=== PATIENT | male | born 1960 | race Caucasian/White ===

== ENCOUNTER 2020-06-30 18:08 | Inpatient (IN) | payer BC ==
[~2020-06-30] VITALS: Ht 165.1 cm; Wt 88.5 kg
[2020-06-30] MEDS ORDERED: VISCOUS LIDOCAINE 2% 15 ML UDC PO STA (18:28)
[2020-06-30] MEDS ORDERED: MAGNESIUM/ALUMINUM HYDROXIDE/SIMETHICONE 30ML UDC PO STA (18:28)
[2020-06-30] MEDS ORDERED: DICYCLOMINE 10 MG/5 ML ORAL SYR PO STA (18:28)
[2020-06-30 18:47] LABS: BASOPHILS % 0.4 % (0.0-2.0); EOSINOPHILS % 0.5 % (0.0-5.0); HEMATOCRIT. 43.8 % (42.0-52.0); HEMOGLOBIN. 14.5 g/dL (14.0-18.0); LYMPHOCYTES % 14.2 % (20.0-50.0); MEAN CORPUSCULAR HEMOGLOBIN 30.8 pg (28.0-32.0); MEAN PLATELET VOLUME 7.1 fl (7.4-10.4); MONOCYTES % 6.5 % (2.0-8.0); NEUTROPHILS % 78.4 % (40.0-76.0); PLATELET 281 x1000/uL (130-400); RED BLOOD CELL COUNT 4.71 mill/uL (4.7-6.1); RED CELL DISTRIBUTION WIDTH 12.9 % (11.6-14.6)
[2020-06-30 18:54] LABS: CHLORIDE 106 mEq/L (98-107)
[2020-06-30 20:48] LABS: CLARITY URINE CLEAR (CLEAR); COLOR URINE YELLOW (YELLOW); KETONES URINE TRACE (NEGATIVE); LEUKOCYTE ESTERASE URINE NEGATIVE (NEGATIVE); NITRITE URINE NEGATIVE (NEGATIVE); OCCULT BLOOD URINE NEGATIVE (NEGATIVE); PH URINE 5.5 (4.5-8.0); PROTEIN URINE 2+ (NEGATIVE); SPECIFIC GRAVITY URINE 1.029 (1.005-1.030)
[2020-06-30] MEDS ORDERED: ONDANSETRON HCL 4MG/2ML INJ IV STA ×2 (20:51→22:51)
[2020-06-30] MEDS ORDERED: MORPHINE SULFATE 4 MG/ML CPJ (NOT FOR IM USE) IV STA ×2 (20:51→22:51)
[2020-06-30] MEDS ORDERED: VANCOMYCIN 1 G PREMIX 200 ML IV ONE (23:00)
[2020-06-30] MEDS ORDERED: PIPERACILLIN/TAZ 3.375G PREMIX 50 ML IV ONE (23:00)
[2020-06-30 23:13] LABS: PROTHROMBIN TIME 10.8 sec (9.6-11.0)
[2020-07-01] VITALS (10 sets, daily range): BP systolic 100–118; BP diastolic 32–80
[2020-07-01] MEDS ORDERED: MORPHINE SULFATE 4 MG/ML CPJ (NOT FOR IM USE) IV PRN (01:15)
[2020-07-01] MEDS ORDERED: MORPHINE SULFATE 2 MG/ML CPJ (NOT FOR IM USE) IV PRN (01:15)
[2020-07-01] MEDS ORDERED: TRAZODONE HCL 50MG TABLET PO PRN (01:15)
[2020-07-01] MEDS ORDERED: ONDANSETRON HCL 4MG/2ML INJ IV PRN ×3 (01:15→05:00)
[2020-07-01] MEDS ORDERED: SODIUM CHLORIDE 0.9% 500 ML IV ONE (01:45)
[2020-07-01] MEDS ORDERED: DEXT 5%/0.45% NACL 1000ML 1,000 ML IV SCH (02:00)
[2020-07-01] MEDS ORDERED: PHENYLEPHRINE HCL 10 MG/ML 1ML (IV VIAL) IV ONE (02:51)
[2020-07-01] MEDS ORDERED: NEOSTIGMINE METHYLSULFATE 1MG/ML 10 ML VIAL ONE (02:51)
[2020-07-01] MEDS ORDERED: GLYCOPYRROLATE 0.2 MG/ML 2ML VIAL ONE (02:51)
[2020-07-01] MEDS ORDERED: PROPOFOL 200MG/20ML VIAL IV ONE (02:51)
[2020-07-01] MEDS ORDERED: SODIUM CHLORIDE 0.9% 10ML VIAL ONE (02:51)
[2020-07-01] MEDS ORDERED: CEFAZOLIN SODIUM 1000MG/VIAL ONE (02:51)
[2020-07-01] MEDS ORDERED: ROCURONIUM BROMIDE 10MG/ML VIAL 5ML IV ONE (02:51)
[2020-07-01] MEDS ORDERED: ONDANSETRON HCL 4MG/2ML INJ ONE (02:51)
[2020-07-01] MEDS ORDERED: SUCCINYLCHOLINE CHLORIDE 200MG/10ML IV ONE (02:51)
[2020-07-01] MEDS ORDERED: EPHEDRINE SULFATE 50MG/ML VIAL ONE (02:51)
[2020-07-01] MEDS ORDERED: METOCLOPRAMIDE HCL 10MG/2ML VIAL ONE (02:51)
[2020-07-01] MEDS ORDERED: MIDAZOLAM HCL 2 MG/2 ML VIAL ONE (02:51)
[2020-07-01] MEDS ORDERED: FENTANYL CITRATE/PF 50MCG/ML 2ML VIAL ONE ×3 (02:51→04:15)
[2020-07-01] MEDS ORDERED: BUPIVACAINE HCL 0.5% (5MG/ML) 50ML ONE (02:59)
[2020-07-01] MEDS ORDERED: HYDROMORPHONE HCL/PF 2MG/ML CPJ IV PRN (05:00)
[2020-07-01] MEDS ORDERED: MEPERIDINE HCL/PF 25MG/ML CPJ IV PRN ×2 (05:00)
[2020-07-01] MEDS: MORPHINE SULFATE 2 MG/ML CPJ (NOT FOR IM USE) IV PRN ×4 (05:38→19:38)
[2020-07-01] MEDS ORDERED: PIPERACILLIN/TAZOBACTAM 3.375 G/VIAL IV SCH (06:00)
[2020-07-01] MEDS: SODIUM CHLORIDE 0.9% 1,000 ML IV NR (07:32)
[2020-07-01] MEDS: PIPERACILLIN/TAZOBACTAM 3.375 G in DEXTROSE 5% WATER 50 ML IV SCH ×2 (07:32→12:43)
[2020-07-01] MEDS: FAMOTIDINE 20MG/2ML VIAL IV SCH ×2 (10:31→20:30)
[2020-07-01] MEDS ORDERED: DEXT 5%/0.45% NACL KCL 20MEQ/L 1,000 ML IV SCH (12:00)
[2020-07-01] MEDS: MORPHINE SULFATE 4 MG/ML CPJ (NOT FOR IM USE) IV PRN ×2 (16:19→23:13)
[2020-07-01] MEDS: PIPERACILLIN/TAZOBACTAM 3.375 G in DEXT 5% WATER 100 ML IV SCH (18:04)
[2020-07-02] VITALS (12 sets, daily range): BP systolic 96–116; BP diastolic 56–80
[2020-07-02] MEDS: PIPERACILLIN/TAZOBACTAM 3.375 G in DEXT 5% WATER 100 ML IV SCH ×4 (00:07→17:25)
[2020-07-02] MEDS: SODIUM CHLORIDE 0.9% 1,000 ML IV NR (00:07)
[2020-07-02] MEDS: MORPHINE SULFATE 2 MG/ML CPJ (NOT FOR IM USE) IV PRN ×3 (01:28→23:00)
[2020-07-02] MEDS: MORPHINE SULFATE 4 MG/ML CPJ (NOT FOR IM USE) IV PRN ×3 (04:41→19:30)
[2020-07-02 06:40] LABS: BASOPHILS % 0.2 % (0.0-2.0); EOSINOPHILS % 0.3 % (0.0-5.0); HEMOGLOBIN. 12.1 g/dL (14.0-18.0); LYMPHOCYTES % 8.7 % (20.0-50.0); MEAN CORPUSCULAR HEMOGLOBIN 31.7 pg (28.0-32.0); MEAN CORPUSCULAR VOLUME 94.2 fL (80.0-94.0); MEAN PLATELET VOLUME 7.2 fl (7.4-10.4); MONOCYTES % 7.2 % (2.0-8.0); NEUTROPHILS % 83.6 % (40.0-76.0); PLATELET 219 x1000/uL (130-400); RED BLOOD CELL COUNT 3.82 mill/uL (4.7-6.1); RED CELL DISTRIBUTION WIDTH 12.9 % (11.6-14.6)
[2020-07-02 08:05] LABS: CHLORIDE 107 mEq/L (98-107)
[2020-07-02] MEDS: FAMOTIDINE 20MG/2ML VIAL IV SCH ×2 (08:38→20:07)
[2020-07-02] MEDS: DEXT 5%/0.45% NACL 1000ML 1,000 ML IV SCH (11:41)
[2020-07-03] VITALS (13 sets, daily range): BP systolic 96–121; BP diastolic 42–73
[2020-07-03] MEDS: ACETAMINOPHEN 325MG TABLET PO PRN (00:01)
[2020-07-03] MEDS: PIPERACILLIN/TAZOBACTAM 3.375 G in DEXT 5% WATER 100 ML IV SCH ×5 (00:18→23:38)
[2020-07-03] MEDS: MORPHINE SULFATE 2 MG/ML CPJ (NOT FOR IM USE) IV PRN ×4 (03:31→22:09)
[2020-07-03] MEDS: DEXT 5%/0.45% NACL 1000ML 1,000 ML IV SCH (04:44)
[2020-07-03 06:33] LABS: BASOPHILS % 0.1 % (0.0-2.0); EOSINOPHILS % 1.5 % (0.0-5.0); HEMATOCRIT. 34.2 % (42.0-52.0); HEMOGLOBIN. 11.5 g/dL (14.0-18.0); LYMPHOCYTES % 8.3 % (20.0-50.0); MEAN CORPUSCULAR HEMOGLOBIN 31.3 pg (28.0-32.0); MEAN CORPUSCULAR VOLUME 93.2 fL (80.0-94.0); MEAN PLATELET VOLUME 7.2 fl (7.4-10.4); MONOCYTES % 6.8 % (2.0-8.0); NEUTROPHILS % 83.3 % (40.0-76.0); PLATELET 206 x1000/uL (130-400); RED BLOOD CELL COUNT 3.67 mill/uL (4.7-6.1)
[2020-07-03 06:43] LABS: CHLORIDE 106 mEq/L (98-107)
[2020-07-03] MEDS: FAMOTIDINE 20MG/2ML VIAL IV SCH ×2 (08:32→20:33)
[2020-07-03] MEDS: DEXT 5%/0.9% NACL 1,000 ML IV SCH (19:37)
[2020-07-04] VITALS (11 sets, daily range): BP systolic 107–129; BP diastolic 23–76
[2020-07-04] MEDS: MORPHINE SULFATE 2 MG/ML CPJ (NOT FOR IM USE) IV PRN ×6 (01:41→22:57)
[2020-07-04] MEDS: DEXT 5%/0.9% NACL 1,000 ML IV SCH ×2 (01:42→13:01)
[2020-07-04] MEDS: PIPERACILLIN/TAZOBACTAM 3.375 G in DEXT 5% WATER 100 ML IV SCH ×4 (05:26→23:08)
[2020-07-04 06:43] LABS: BASOPHILS % 0.3 % (0.0-2.0); EOSINOPHILS % 2.3 % (0.0-5.0); LYMPHOCYTES % 7.7 % (20.0-50.0); MEAN CORPUSCULAR VOLUME 93.3 fL (80.0-94.0); MEAN PLATELET VOLUME 7.1 fl (7.4-10.4); MONOCYTES % 9.5 % (2.0-8.0); NEUTROPHILS % 80.2 % (40.0-76.0); PLATELET 256 x1000/uL (130-400); RED BLOOD CELL COUNT 3.76 mill/uL (4.7-6.1); RED CELL DISTRIBUTION WIDTH 12.9 % (11.6-14.6)
[2020-07-04 06:48] LABS: CHLORIDE 103 mEq/L (98-107)
[2020-07-04] MEDS: FAMOTIDINE 20MG/2ML VIAL IV SCH ×2 (09:08→21:18)
[2020-07-04] MEDS ORDERED: ACETAMINOPHEN 325MG SUPP PR PRN (09:15)
[2020-07-05] VITALS (12 sets, daily range): BP systolic 94–129; BP diastolic 50–83
[2020-07-05] MEDS: DEXT 5%/0.9% NACL 1,000 ML IV SCH ×2 (04:29→17:23)
[2020-07-05] MEDS: MORPHINE SULFATE 2 MG/ML CPJ (NOT FOR IM USE) IV PRN ×3 (04:29→23:27)
[2020-07-05] MEDS: PIPERACILLIN/TAZOBACTAM 3.375 G in DEXT 5% WATER 100 ML IV SCH ×4 (05:19→23:28)
[2020-07-05 07:24] LABS: CHLORIDE 105 mEq/L (98-107)
[2020-07-05 07:48] LABS: BASOPHILS % 0.3 % (0.0-2.0); HEMATOCRIT. 35.8 % (42.0-52.0); HEMOGLOBIN. 12.1 g/dL (14.0-18.0); LYMPHOCYTES % 10.2 % (20.0-50.0); MEAN CORPUSCULAR HEMOGLOBIN 31.4 pg (28.0-32.0); MEAN CORPUSCULAR VOLUME 92.9 fL (80.0-94.0); MEAN PLATELET VOLUME 7.1 fl (7.4-10.4); MONOCYTES % 14.7 % (2.0-8.0); NEUTROPHILS % 71.8 % (40.0-76.0); PLATELET 278 x1000/uL (130-400); RED BLOOD CELL COUNT 3.85 mill/uL (4.7-6.1); RED CELL DISTRIBUTION WIDTH 13.2 % (11.6-14.6)
[2020-07-05] MEDS: FAMOTIDINE 20MG/2ML VIAL IV SCH ×2 (08:24→20:49)
[2020-07-05] MEDS ORDERED: KCL 20MEQ/100ML PREMIX 100 ML IV NR (09:30)
[2020-07-05] MEDS: MORPHINE SULFATE 4 MG/ML CPJ (NOT FOR IM USE) IV PRN ×2 (09:31→18:16)
[2020-07-06] VITALS (11 sets, daily range): BP systolic 98–135; BP diastolic 56–85
[2020-07-06] MEDS: PIPERACILLIN/TAZOBACTAM 3.375 G in DEXT 5% WATER 100 ML IV SCH ×3 (05:56→19:04)
[2020-07-06] MEDS: DEXT 5%/0.9% NACL 1,000 ML IV SCH ×2 (06:11→20:47)
[2020-07-06 07:02] LABS: BASOPHILS % 0.4 % (0.0-2.0); EOSINOPHILS % 3.9 % (0.0-5.0); HEMATOCRIT. 37.1 % (42.0-52.0); HEMOGLOBIN. 12.5 g/dL (14.0-18.0); LYMPHOCYTES % 15.3 % (20.0-50.0); MEAN CORPUSCULAR HEMOGLOBIN 31.1 pg (28.0-32.0); MEAN CORPUSCULAR VOLUME 92.3 fL (80.0-94.0); MEAN PLATELET VOLUME 7.2 fl (7.4-10.4); MONOCYTES % 14.7 % (2.0-8.0); NEUTROPHILS % 65.7 % (40.0-76.0); PLATELET 330 x1000/uL (130-400); RED BLOOD CELL COUNT 4.02 mill/uL (4.7-6.1); RED CELL DISTRIBUTION WIDTH 13.3 % (11.6-14.6)
[2020-07-06 07:12] LABS: CHLORIDE 106 mEq/L (98-107)
[2020-07-06] MEDS: ACETAMINOPHEN 325MG TABLET PO PRN (08:09)
[2020-07-06] MEDS: FAMOTIDINE 20MG/2ML VIAL IV SCH ×2 (08:09→21:10)
[2020-07-06] MEDS: MORPHINE SULFATE 2 MG/ML CPJ (NOT FOR IM USE) IV PRN ×3 (11:02→22:17)
[2020-07-06] MEDS ORDERED: INFLUENZA VACCINE 05/PF 0.5 ML VIAL IM ONE (12:15)
[2020-07-07] VITALS (7 sets, daily range): BP systolic 115–121; BP diastolic 71–86
[2020-07-07] MEDS: MORPHINE SULFATE 2 MG/ML CPJ (NOT FOR IM USE) IV PRN ×4 (02:49→22:15)
[2020-07-07] MEDS: DEXT 5%/0.9% NACL 1,000 ML IV SCH ×2 (08:41→22:17)
[2020-07-07] MEDS: FAMOTIDINE 20MG/2ML VIAL IV SCH ×2 (08:41→21:55)
[2020-07-07] MEDS ORDERED: MORPHINE SULFATE 2 MG/ML CPJ (NOT FOR IM USE) IV PRN (10:15)
[2020-07-07] MEDS ORDERED: POLYETHYLENE GLYCOL 3350 (17GM) 1 DOSE PACK PO PRN (10:45)
[2020-07-07 13:11] LABS: BASOPHILS % 0.6 % (0.0-2.0); EOSINOPHILS % 4.1 % (0.0-5.0); HEMATOCRIT. 37.1 % (42.0-52.0); HEMOGLOBIN. 12.3 g/dL (14.0-18.0); LYMPHOCYTES % 19.5 % (20.0-50.0); MEAN CORPUSCULAR VOLUME 93.6 fL (80.0-94.0); MEAN PLATELET VOLUME 7.1 fl (7.4-10.4); MONOCYTES % 14.7 % (2.0-8.0); NEUTROPHILS % 61.1 % (40.0-76.0); PLATELET 364 x1000/uL (130-400); RED BLOOD CELL COUNT 3.97 mill/uL (4.7-6.1); RED CELL DISTRIBUTION WIDTH 13.8 % (11.6-14.6)
[2020-07-07 13:20] LABS: CHLORIDE 110 mEq/L (98-107)
[2020-07-07] MEDS: DOCUSATE SODIUM 100MG CAPSULE PO SCH (17:15)
[2020-07-08] VITALS (7 sets, daily range): BP systolic 98–112; BP diastolic 67–73
[2020-07-08 07:20] LABS: BASOPHILS % 0.5 % (0.0-2.0); EOSINOPHILS % 4.4 % (0.0-5.0); HEMATOCRIT. 34.8 % (42.0-52.0); HEMOGLOBIN. 11.6 g/dL (14.0-18.0); MEAN CORPUSCULAR VOLUME 93.1 fL (80.0-94.0); MEAN PLATELET VOLUME 6.9 fl (7.4-10.4); MONOCYTES % 10.2 % (2.0-8.0); NEUTROPHILS % 64.9 % (40.0-76.0); PLATELET 402 x1000/uL (130-400); RED BLOOD CELL COUNT 3.74 mill/uL (4.7-6.1); RED CELL DISTRIBUTION WIDTH 13.3 % (11.6-14.6)
[2020-07-08 07:39] LABS: CHLORIDE 107 mEq/L (98-107)
[2020-07-08] MEDS: FAMOTIDINE 20MG/2ML VIAL IV SCH ×2 (09:00→20:51)
[2020-07-08] MEDS: DOCUSATE SODIUM 100MG CAPSULE PO SCH ×2 (09:00→17:21)
[2020-07-08] MEDS: DEXT 5%/0.9% NACL 1,000 ML IV SCH (10:07)
[2020-07-08] MEDS: ACETAMINOPHEN 325MG TABLET PO PRN ×2 (14:12→19:29)
[2020-07-09] VITALS: BP 99/62
[2020-07-09] MEDS: DEXT 5%/0.9% NACL 1,000 ML IV SCH ×2 (01:50→15:10)
[2020-07-09 04:00] VITALS: BP 110/75
[2020-07-09 07:18] LABS: BASOPHILS % 0.6 % (0.0-2.0); EOSINOPHILS % 2.9 % (0.0-5.0); HEMATOCRIT. 35.7 % (42.0-52.0); HEMOGLOBIN. 11.9 g/dL (14.0-18.0); LYMPHOCYTES % 15.3 % (20.0-50.0); MEAN CORPUSCULAR HEMOGLOBIN 30.7 pg (28.0-32.0); MEAN CORPUSCULAR VOLUME 92.5 fL (80.0-94.0); MEAN PLATELET VOLUME 6.9 fl (7.4-10.4); MONOCYTES % 6.9 % (2.0-8.0); NEUTROPHILS % 74.3 % (40.0-76.0); PLATELET 458 x1000/uL (130-400); RED BLOOD CELL COUNT 3.87 mill/uL (4.7-6.1); RED CELL DISTRIBUTION WIDTH 13.5 % (11.6-14.6)
[2020-07-09 07:29] LABS: CHLORIDE 106 mEq/L (98-107)
[2020-07-09 08:00] VITALS: BP 97/53
[2020-07-09] MEDS: FAMOTIDINE 20MG/2ML VIAL IV SCH ×2 (10:15→20:06)
[2020-07-09] MEDS: DOCUSATE SODIUM 100MG CAPSULE PO SCH ×2 (10:15→17:00)
[2020-07-09 12:00] VITALS: BP 100/59
[2020-07-09] MEDS: ACETAMINOPHEN 325MG TABLET PO PRN (12:20)
[2020-07-09 16:00] VITALS: BP 110/72
[2020-07-09 20:00] VITALS: BP 99/63
[2020-07-10] VITALS (8 sets, daily range): BP systolic 100–108; BP diastolic 64–76
[2020-07-10] MEDS: DEXT 5%/0.9% NACL 1,000 ML IV SCH (05:18)
[2020-07-10 06:52] LABS: BASOPHILS % 0.8 % (0.0-2.0); EOSINOPHILS % 2.5 % (0.0-5.0); HEMATOCRIT. 34.2 % (42.0-52.0); HEMOGLOBIN. 11.7 g/dL (14.0-18.0); MEAN CORPUSCULAR HEMOGLOBIN 31.6 pg (28.0-32.0); MEAN CORPUSCULAR VOLUME 92.3 fL (80.0-94.0); MEAN PLATELET VOLUME 6.9 fl (7.4-10.4); MONOCYTES % 6.7 % (2.0-8.0); PLATELET 488 x1000/uL (130-400); RED BLOOD CELL COUNT 3.71 mill/uL (4.7-6.1); RED CELL DISTRIBUTION WIDTH 13.6 % (11.6-14.6)
[2020-07-10 08:02] LABS: CHLORIDE 106 mEq/L (98-107)
[2020-07-10] MEDS: FAMOTIDINE 20MG/2ML VIAL IV SCH (11:38)
[2020-07-10] MEDS: DOCUSATE SODIUM 100MG CAPSULE PO SCH ×2 (11:38→16:33)
[2020-07-10] MEDS ORDERED: TOPUD PO (12:36)
[2020-07-10] MEDS: ACETAMINOPHEN 325MG TABLET PO PRN (12:47)
== END 2020-07-10 18:25 | disposition home or self-care (01) | DRG 853 ==
LOC: ER 18:08 → 5EST 22:38 → ENRESERV 23:55
PROVIDERS: ADMIT Internal Medicine; ATTEND Internal Medicine
PROC: 0DU907Z Supplement Duodenum with Autologous Tissue Substitute, Open Approach (ICD-10-PCS; principal; 2020-07-01)
PROC: 0DNU0ZZ Release Omentum, Open Approach (ICD-10-PCS; 2020-07-01)
PROC: 0DNW0ZZ Release Peritoneum, Open Approach (ICD-10-PCS; 2020-07-01)
PROC: 0DNL0ZZ Release Transverse Colon, Open Approach (ICD-10-PCS; 2020-07-01)
DX: A41.51 Sepsis due to Escherichia coli [E. coli] (principal); K26.5 Chronic or unspecified duodenal ulcer with perforation; K65.9 Peritonitis, unspecified; D62 Acute posthemorrhagic anemia; E87.1 Hypo-osmolality and hyponatremia; K56.7 Ileus, unspecified; A41.01 Sepsis due to Methicillin susceptible Staphylococcus aureus; E87.6 Hypokalemia; E80.6 Other disorders of bilirubin metabolism; B96.20 Unspecified Escherichia coli [E. coli] as the cause of diseases classified elsewhere; Z20.822 Contact with and (suspected) exposure to COVID-19
CPT/HCPCS: 36415; 74176; 80048; 80053; 80061; 81003; 82248; 83735; 83880; 84484; 85025; 86850; 86900; 87070; 87075; 87077; 87186; 87426; 90686; 93005; 93306; 96374; 97116; 97162; 97166; 97530; 97535; 99291; J0330; J0690; J2175; J2250; J2270; J2370; J2405; J2543; J2704; J2710; J2765; J3010; J3370; J3480; J3490; J7040; J7042; J7060